=== PATIENT | female | born 1950 | race Caucasian/White ===

== ENCOUNTER 2017-01-03 09:20 | Outpatient (CLI) | payer MEDICARE, OTHER | END 2017-01-03 09:21 | disposition home or self-care (01) | DX: Z12.31 Encounter for screening mammogram for malignant neoplasm of breast (principal); Z80.3 Family history of malignant neoplasm of breast ==

== ENCOUNTER 2018-01-09 10:06 | Outpatient (CLI) | payer MEDICARE, OTHER ==
--- NOTE | 2018-01-10 14:40 | Mammography Report ---
DIGITAL SCREENING MAMMOGRAM: 01/09/2018 CLINICAL INDICATION: A 67-year-old nulliparous patient with family history of breast cancer for screening. COMPARISON: 01/2017, 12/2015, 12/2014, 11/2013, 10/2012, 08/2011, 08/2010. TECHNIQUE: Routine CC and MLO projections were obtained of the breasts. FINDINGS: The breasts again demonstrate scattered fibroglandular densities bilaterally. Coarse and punctate, typically benign calcifications are present. There is a shifting pattern of small circumscribed nodules bilaterally, compatible with waxing and waning cysts. No suspicious masses, clustered microcalcifications, or regions of architectural distortion are identified. IMPRESSION: BENIGN FINDINGS. RECOMMENDATION: Routine annual screening unless otherwise clinically indicated. BIRADS CATEGORY 2 - benign findings. STANDARD QUALIFYING STATEMENTS: 1. This examination was reviewed with the aid of Computer-Aided Detection (CAD). 2. A negative or benign imaging report should not delay biopsy if clinically suspicious findings are present. Consider surgical consultation if warranted. More than 5% of cancers are not identified by imaging. 3. Dense breasts may obscure an underlying neoplasm. TD: 01/10/2018 14:39
== END 2018-01-09 10:07 | disposition home or self-care (01) ==
LOC: DI 10:06
PROVIDERS: ATTEND Internal Medicine
DX: Z12.31 Encounter for screening mammogram for malignant neoplasm of breast (principal); Z80.3 Family history of malignant neoplasm of breast
CPT/HCPCS: 77067

== ENCOUNTER 2019-02-19 10:19 | Outpatient (CLI) | payer MEDICARE, OTHER ==
--- NOTE | 2019-02-19 12:15 | Mammography Report ---
Reason: SCREENING MAMMO Procedure Date: 02/19/2019 Accession Number: [id number] / [id number] Procedure: [facility] - Screening Mammo w/Darwin CPT Code: FULL RESULT: EXAM: Screening Mammo w/Darwin DATE: 02/19/2019 10:49 AM CLINICAL HISTORY: Screening examination. TECHNIQUE: (B) - Bilateral CC and MLO views were obtained. COMPARISON: 01/09/2018, 01/03/2017, 12/27/2015, 12/16/2014 PARENCHYMAL PATTERN: (A) - The breasts demonstrate scattered fibroglandular densities bilaterally. FINDINGS: Stable small well-circumscribed benign breast nodule unchanged dating back to at least 2014. There are no suspicious masses, pleomorphic microcalcifications, or areas of distortion. IMPRESSION: Benign findings. BI-RADS category 2. RECOMMENDATION: (ANNUAL) - Recommend routine annual screening mammography. BI-RADS CATEGORY: (2) - Benign Findings. STANDARD QUALIFYING STATEMENTS: 1. This examination was not reviewed with the aid of Computer-Aided Detection (CAD). 2. A negative or benign imaging report should not preclude biopsy if clinically suspicious findings are present. 3. Dense breasts may obscure an underlying neoplasm. 4. This examination was reviewed without the aid of 3D breast imaging (tomosynthesis).
== END 2019-02-19 10:20 | disposition home or self-care (01) ==
LOC: DI 10:19
PROVIDERS: ATTEND Internal Medicine
DX: Z12.31 Encounter for screening mammogram for malignant neoplasm of breast (principal)
CPT/HCPCS: 77063; 77067

== ENCOUNTER 2020-01-23 08:50 | Outpatient (CLI) | payer MEDICARE, OTHER ==
[2020-01-23 09:12] LABS: BASOPHILS % (AUTO) 0.8 %; EOSINOPHILS # (AUTO) 0.2 10^3/uL (0.0-0.7); EOSINOPHILS % (AUTO) 3.4 %; HGB - HEMOGLOBIN 13.3 g/dL (12.0-16.0); LYMPHOCYTES # (AUTO) 1.4 10^3/uL (1.5-3.5); LYMPHOCYTES % (AUTO) 28.2 %; MEAN CORPUSCULAR HEMOGLOBIN 30.3 pg (27.0-31.0); MEAN CORPUSCULAR HGB CONC 33.8 g/dL (32.0-36.0); MEAN CORPUSCULAR VOLUME 89.5 fL (81.0-99.0); MEAN PLATELET VOLUME 8.4 fL (7.9-10.8); MONOCYTES # (AUTO) 0.5 10^3/uL (0.0-1.0); MONOCYTES % (AUTO) 9.1 %; NEUTROPHILS # (AUTO) 2.9 10^3/uL (1.5-6.6); NEUTROPHILS % (AUTO) 58.3 %; PLT - PLATELET COUNT 319 10^3/uL (130-450); RED BLOOD COUNT 4.39 10^6/uL (4.20-5.40); RED CELL DISTRIBUTION WIDTH 12.1 % (12.0-15.0); WHITE BLOOD COUNT 4.9 x10^3/uL (4.8-10.8)
[2020-01-23 09:26] LABS: ALBUMIN 4.5 g/dL (3.2-5.5); ALBUMIN/GLOBULIN RATIO 1.7 (1.0-2.2); ALKALINE PHOSPHATASE 35 IU/L (42-121); ALT ALANINE AMINOTRANSFERASE 20 IU/L (10-60); AST ASPARTATE AMINOTRANSFERASE 16 IU/L (10-42); BUN - BLOOD UREA NITROGEN 32 mg/dL (6-20); CALCIUM 9.7 mg/dL (8.5-10.3); CARBON DIOXIDE - CO2 26 mmol/L (21-32); CHLORIDE 100 mmol/L (101-111); CHOLESTEROL 191 mg/dL; CK- CREATINE KINASE 46 IU/L (22-269); CREATININE 0.7 mg/dL (0.4-1.0); GFR - MDRD 83 (>89); GLUCOSE 103 mg/dL (70-100); HDL CHOLESTEROL 48 mg/dL; LDL CHOLESTEROL,CALCULATED 118 mg/dL; LDL/HDL RATIO 2.5 (<4.4); SODIUM 134 mmol/L (135-145); TOTAL PROTEIN 7.2 g/dL (6.7-8.2); VLDL CHOLESTEROL 25 mg/dL
[2020-01-23 17:38] LABS: HB2 TOTAL 13.9 g/dL; HEMOGLOBIN A1C 0.51 g/dL; HEMOGLOBIN A1C % 5.5 % (4.6-6.2)
== END 2020-01-23 08:51 | disposition home or self-care (01) ==
LOC: LAB 08:50
PROVIDERS: ATTEND Internal Medicine
DX: I10 Essential (primary) hypertension (principal); R73.9 Hyperglycemia, unspecified; E78.5 Hyperlipidemia, unspecified; D64.9 Anemia, unspecified; Z13.6 Encounter for screening for cardiovascular disorders; Z79.899 Other long term (current) drug therapy
CPT/HCPCS: 36415; 80053; 80061; 82550; 83036; 83721; 84443; 85025

== ENCOUNTER 2020-05-11 10:12 | Outpatient (CLI) | payer MEDICARE, OTHER ==
--- NOTE | 2020-05-12 05:39 | Mammography Report ---
BILATERAL DIGITAL SCREENING MAMMOGRAM 3D/2D: 05/11/2020 Comparison is made to exams dated: 02/19/2019 mammogram, 01/09/2018 mammogram, 01/03/2017 mammogram, 12/27 mammogram, 12/16/2014 mammogram, and 12/04/2013 mammogram - [facility]. There are scattered fibroglandular elements in both breasts. No significant masses, calcifications, or other findings are seen in either breast. There has been no significant interval change. IMPRESSION: NEGATIVE There is no mammographic evidence of malignancy. A 1 year screening mammogram is recommended. This exam was interpreted at Station ID: [id number]. NOTE: For mammograms, a report in lay terms will be sent to the patient. Approximately 15% of breast malignancies will not be visualized mammographically. In the management of a palpable breast mass, a negative mammogram must not discourage biopsy of a clinically suspicious lesion. Electronically Signed By: Staci stone/bernadine:05/11/2020 15:16:23 ACR BI-RADS Category 1: Negative 3341F PARENCHYMAL PATTERN: (A) - The breast(s) demonstrate(s) scattered fibroglandular densities. BI-RADS CATEGORY: (1) - 1 RECOMMENDATION: (ANNUAL) - Recommend routine annual screening mammography. [id number] 1 year screening LATERALITY: (B)
== END 2020-05-11 10:13 | disposition home or self-care (01) ==
LOC: DI 10:12
PROVIDERS: ATTEND Internal Medicine
DX: Z12.31 Encounter for screening mammogram for malignant neoplasm of breast (principal)
CPT/HCPCS: 77063; 77067

== ENCOUNTER 2021-04-13 07:31 | Day surgery (SDC) | payer MEDICARE, OTHER ==
[2021-04-13] MEDS ORDERED: LACTATED RINGERS 1,000 ML IV ONE ×2 (07:43→09:03)
[2021-04-13] MEDS ORDERED: MIDAZOLAM 2 MG/2 ML VIAL ONE ×2 (08:26→08:31)
[2021-04-13] MEDS ORDERED: fentaNYL 250 MCG/5 ML VIAL ONE (08:26)
[2021-04-13 09:27] VITALS: BP 94/55
== END 2021-04-13 07:32 | disposition home or self-care (01) ==
LOC: SDS 07:31
PROVIDERS: ATTEND Surgery
DX: Z12.11 Encounter for screening for malignant neoplasm of colon (principal); K57.30 Diverticulosis of large intestine without perforation or abscess without bleeding; K64.8 Other hemorrhoids; Z86.010 Personal history of colon polyps
CPT/HCPCS: G0105; J3010; J7120

== ENCOUNTER 2021-11-10 08:13 | Outpatient (CLI) | payer MEDICARE, OTHER ==
--- NOTE | 2021-11-11 08:20 | Mammography Report ---
BILATERAL DIGITAL SCREENING MAMMOGRAM 3D/2D: 11/10/2021 CLINICAL: Routine screening. Comparison is made to exams dated: 05/11/2020 mammogram, 02/19/2019 mammogram, 01/09/2018 mammogram, and 01/03/2017 mammogram - [facility]. There are scattered fibroglandular elements in breann th breasts. No significant masses, calcifications, or other findings are seen in either breast. There has been no significant interval change. IMPRESSION: NEGATIVE There is no mammographic evidence of malignancy. A 1 year screening mammogram is recommended. This exam was interpreted at Station ID: [id number]. NOTE: For mammograms, a report in lay terms will be sent to the patient. Approximately 15% of breast malignancies will not be visualized mammographically. In the management of a palpable breast mass, a negative mammogram must not discourage biopsy of a clinically suspicious lesion. Electronically Signed By: George Montoya M.D. ar/penrad:11/10/2021 11:10:33 ACR BI-RADS Category 1: Negative 3341F PARENCHYMAL PATTERN: (A) - The breast(s) demonstrate(s) scattered fibroglandular densities. BI-RADS CATEGORY: (1) - 1 RECOMMENDATION: (ANNUAL) - Recommend routine annual screening mammography. [id number] 1 year screening LATERALITY: (B)
== END 2021-11-10 08:14 | disposition home or self-care (01) ==
LOC: DI 08:13
DX: Z12.31 Encounter for screening mammogram for malignant neoplasm of breast (principal)

== ENCOUNTER 2022-02-23 08:00 | Outpatient (CLI) | payer MEDICARE, OTHER ==
[2022-02-23 16:57] LABS: BASOPHILS % (AUTO) 0.6 %; EOSINOPHILS # (AUTO) 0.1 10^3/uL (0.0-0.7); EOSINOPHILS % (AUTO) 1.8 %; HCT - HEMATOCRIT 39.4 % (37.0-47.0); LYMPHOCYTES # (AUTO) 1.6 10^3/uL (1.5-3.5); LYMPHOCYTES % (AUTO) 29.8 %; MEAN CORPUSCULAR HEMOGLOBIN 29.9 pg (27.0-31.0); MEAN CORPUSCULAR VOLUME 90.6 fL (81.0-99.0); MEAN PLATELET VOLUME 8.6 fL (7.9-10.8); MONOCYTES # (AUTO) 0.4 10^3/uL (0.0-1.0); NEUTROPHILS # (AUTO) 3.3 10^3/uL (1.5-6.6); NEUTROPHILS % (AUTO) 60.6 %; PLT - PLATELET COUNT 362 10^3/uL (130-450); RED BLOOD COUNT 4.35 10^6/uL (4.20-5.40); RED CELL DISTRIBUTION WIDTH 12.7 % (12.0-15.0); WHITE BLOOD COUNT 5.4 x10^3/uL (4.8-10.8)
[2022-02-23 17:03] LABS: ALBUMIN 4.3 g/dL (3.2-5.5); ALBUMIN/GLOBULIN RATIO 1.4 (1.0-2.2); ALKALINE PHOSPHATASE 39 IU/L (42-121); ALT ALANINE AMINOTRANSFERASE 18 IU/L (10-60); AST ASPARTATE AMINOTRANSFERASE 18 IU/L (10-42); BILIRUBIN,TOTAL 0.9 mg/dL (0.2-1.0); BUN - BLOOD UREA NITROGEN 23 mg/dL (6-20); CALCIUM 9.6 mg/dL (8.5-10.3); CARBON DIOXIDE - CO2 27 mmol/L (21-32); CHLORIDE 98 mmol/L (101-111); CHOL/HDL RATIO 3.6 (<4.4); CHOLESTEROL 189 mg/dL; CK- CREATINE KINASE 58 IU/L (22-269); CREATININE 0.7 mg/dL (0.4-1.0); GFR - MDRD 82 (>89); GLUCOSE 85 mg/dL (70-100); HDL CHOLESTEROL 52 mg/dL; LDL CHOLESTEROL,CALCULATED 109 mg/dL; LDL/HDL RATIO 2.1 (<4.4); POTASSIUM 3.9 mmol/L (3.5-5.0); SODIUM 134 mmol/L (135-145); TOTAL PROTEIN 7.3 g/dL (6.7-8.2); TRIGLYCERIDES 140 mg/dL; VLDL CHOLESTEROL 28 mg/dL
[2022-02-23 17:27] LABS: BILIRUBIN,URINE NEGATIVE (NEGATIVE); GLUCOSE, URINE (UA) NEGATIVE (NEGATIVE); KETONES,URINE (UA) NEGATIVE (NEGATIVE); LEUKOCYTE ESTERASE, URINE NEGATIVE (NEGATIVE); NITRITE,URINE NEGATIVE (NEGATIVE); OCCULT BLOOD,URINE NEGATIVE (NEGATIVE); PROTEIN,URINE NEGATIVE (NEGATIVE); UROBILINOGEN,URINE 0.2 (NORMAL) E.U./dL (NORMAL)
[2022-02-23 17:36] LABS: BACTERIA,URINE Many /HPF (None Seen); CLARITY,URINE CLEAR (CLEAR); RBC,URINE None Seen /HPF (0-5); SQUAMOUS EPITHELIAL CELL,UR RARE Squamous (<= Few); WBC,URINE 0-3 /HPF (0-5)
== END 2022-02-23 23:59 | disposition home or self-care (01) ==
LOC: LAB.R 08:00
PROVIDERS: ATTEND Internal Medicine
DX: Z00.00 Encounter for general adult medical examination without abnormal findings (principal); Z79.899 Other long term (current) drug therapy; R39.9 Unspecified symptoms and signs involving the genitourinary system; D64.9 Anemia, unspecified; H91.90 Unspecified hearing loss, unspecified ear; Z86.010 Personal history of colon polyps; E78.5 Hyperlipidemia, unspecified; I10 Essential (primary) hypertension; R73.01 Impaired fasting glucose; M19.90 Unspecified osteoarthritis, unspecified site; J30.2 Other seasonal allergic rhinitis; H65.90 Unspecified nonsuppurative otitis media, unspecified ear
CPT/HCPCS: 80053; 80061; 81001; 82550; 83721; 84443; 85025; 87086; 87181

== ENCOUNTER 2023-03-08 08:50 | Outpatient (CLI) | payer MEDICARE, OTHER ==
--- NOTE | 2023-03-09 11:09 | Mammography Report ---
BILATERAL DIGITAL DIAGNOSTIC MAMMOGRAM 3D/2D: 03/08/2023 CLINICAL: Possible lump in Right breast. Due for bilateral imaging. Comparison is made to exams dated: 11/10/2021 mammogram, 05/11/2020 mammogram, 02/19/2019 mammogram, 2017 mammogram, 01/03/2017 mammogram, and 12/27/2015 mammogram - [facility]. There are scattered areas of fibroglandular density in both breasts (category b / 25%-50% glandular t issue). No significant masses, calcifications, or other findings are seen in either breast. IMPRESSION: INCOMPLETE: NEEDS ADDITIONAL IMAGING EVALUATION There is no abnormality seen in the right breast to correspond with the area of clinical concern in t he upper inner quadrant, however, ultrasound is recommended. Based on the Tyrer Cuzick model (a risk assessment model) the patients lifetime risk is 10.5% and he r 10 year risk is 7.9%. According to the ACR, ACS, and NCCN guidelines, an annual breast MRI exam sly ng with mammogram is recommended if the patients lifetime risk is 20% or greater. This exam was interpreted at Station ID: [id number]. NOTE: For mammograms, a report in lay terms will be sent to the patient. Approximately 15% of breast malignancies will not be visualized mammographically. In the management of a palpable breast mass, a negative mammogram must not discourage biopsy of a clinically suspicious lesion. Electronically Signed By: Giancarlo Mandel M.D. lc/:03/08/2023 10:09:34 ACR BI-RADS Category 0: Incomplete 3340F PARENCHYMAL PATTERN: (A) - The breast(s) demonstrate(s) scattered fibroglandular densities. BI-RADS CATEGORY: (0) - 0 Ultrasound [id number] Immediate follow-up LATERALITY: (B)
--- NOTE | 2023-03-09 11:09 | Ultrasound Report ---
LIMITED ULTRASOUND OF RIGHT BREAST: 03/08/2023 CLINICAL: Palpable right breast lump by patient. No prior exams were available for comparison. Color flow and real-time ultrasound of the right breast 12 o'clock region were performed. Toro scale images of the real-time examination were reviewed. IMPRESSION: NEGATIVE There is no sonographic evidence of malignancy. There is no abnormality seen in the right breast to correspond with the area of clinical concern at 1 2 o'clock, however, clinical correlation and clinical followup are recommended. Return to annual mammogram screening schedule is recommended. This exam was interpreted at Station ID: [id number]. Electronically Signed By: Giancarlo Mandel M.D. lc/:03/08/2023 10:11:10 letter sent: No_Letter Ultrasound BI-RADS: 1 Negative BI-RADS CATEGORY: (1) - 1 Mammogram [id number] return to screening LATERALITY: (B)
== END 2023-03-08 08:51 | disposition home or self-care (01) ==
LOC: DI 08:50
PROVIDERS: ATTEND Internal Medicine
DX: N64.59 Other signs and symptoms in breast (principal)

== ENCOUNTER 2023-12-16 13:12 | Outpatient (CLI) | payer MEDICARE, OTHER ==
--- NOTE | 2023-12-16 20:13 | Ultrasound Report ---
PROCEDURE: Extremity Soft Tissue Limited INDICATIONS: LUMP LOWER LEG TECHNIQUE: Real-time scanning was performed of the right lower extremity, with image documentation. COMPARISON: None. FINDINGS: In the area of right lower extremity palpable abnormality, there is a mixed echogenicity f luid collection/lesion measuring 1 x 0.5 x 0.6 cm. The underlying posterior tibial and peroneal vein are patent. There is no internal vascularity. IMPRESSION: Right lower extremity probable abnormality corresponds to a mixed echogenicity fluid collection/lesio n measuring 1 x 0.5 x 0.6 cm. Findings likely represent a hematoma. Correlate with clinical exam and consider a short interval follow-up to document resolution, at clini syd discretion. Reviewed by: Yi Galdamez MD on 12/16/2023 8:11 PM PST Approved by: Yi Galdamez MD on 12/16/2023 8:11 PM PST Station ID: [id number]
== END 2023-12-16 13:13 | disposition home or self-care (01) ==
LOC: DI 13:12
PROVIDERS: ATTEND Internal Medicine
DX: R22.41 Localized swelling, mass and lump, right lower limb (principal)

== ENCOUNTER 2023-12-16 13:13 | Outpatient (CLI) | payer MEDICARE, OTHER ==
--- NOTE | 2023-12-16 20:29 | XRAY Report ---
PROCEDURE: Hip w/Pelvis 2-3V RT INDICATIONS: RIGHT HIP PAIN TECHNIQUE: 2 views of the hip were acquired. COMPARISON: None. FINDINGS: Bones: No fractures or dislocations. An apparent lucency in the femoral neck is favored to represent overlying skin folds. Severe right hip joint space narrowing, subcortical sclerosis and juxta-articu lar osteophytosis. No suspicious bony lesions. Degenerative changes of the lower lumbar spine with levoconvex curvature. Minimal left hip joint space narrowing. Soft tissues: No suspicious soft tissue calcifications or masses. IMPRESSION: 1.No definite acute bony abnormality. If there is high clinical suspicion for a radiographically occu lt fracture, consider cross-sectional imaging for further evaluation. 2.Severe right hip osteoarthritis. Inflammatory arthritis is not excluded. Reviewed by: Yi Galdamez MD on 12/16/2023 8:28 PM PST Approved by: Yi Galdamez MD on 12/16/2023 8:28 PM PST Station ID: [id number]
== END 2023-12-16 13:14 | disposition home or self-care (01) ==
LOC: DI 13:13
PROVIDERS: ATTEND Internal Medicine
DX: M16.11 Unilateral primary osteoarthritis, right hip (principal); R22.41 Localized swelling, mass and lump, right lower limb

== ENCOUNTER 2024-03-12 08:56 | Outpatient (CLI) | payer MEDICARE, OTHER ==
[2024-03-12 09:08] LABS: BASOPHILS % (AUTO) 0.5 %; EOSINOPHILS # (AUTO) 0.2 10^3/uL (0.0-0.7); EOSINOPHILS % (AUTO) 2.6 %; HCT - HEMATOCRIT 42.2 % (37.0-47.0); HGB - HEMOGLOBIN 13.9 g/dL (12.0-16.0); LYMPHOCYTES # (AUTO) 1.5 10^3/uL (1.5-3.5); LYMPHOCYTES % (AUTO) 25.4 %; MEAN CORPUSCULAR HEMOGLOBIN 29.8 pg (27.0-31.0); MEAN CORPUSCULAR HGB CONC 32.9 g/dL (32.0-36.0); MEAN CORPUSCULAR VOLUME 90.6 fL (81.0-99.0); MEAN PLATELET VOLUME 8.3 fL (7.9-10.8); MONOCYTES # (AUTO) 0.5 10^3/uL (0.0-1.0); MONOCYTES % (AUTO) 8.2 %; NEUTROPHILS # (AUTO) 3.6 10^3/uL (1.5-6.6); NEUTROPHILS % (AUTO) 63.1 %; PLT - PLATELET COUNT 316 10^3/uL (130-450); RED BLOOD COUNT 4.66 10^6/uL (4.20-5.40); RED CELL DISTRIBUTION WIDTH 12.3 % (12.0-15.0); WHITE BLOOD COUNT 5.7 x10^3/uL (4.8-10.8)
[2024-03-12 09:32] LABS: ALBUMIN 4.6 g/dL (3.2-5.5); ALBUMIN/GLOBULIN RATIO 1.7 (1.0-2.2); ALKALINE PHOSPHATASE 45 IU/L (42-121); ALT ALANINE AMINOTRANSFERASE 12 IU/L (10-60); AST ASPARTATE AMINOTRANSFERASE 13 IU/L (10-42); BILIRUBIN,TOTAL 0.8 mg/dL (0.2-1.0); BUN - BLOOD UREA NITROGEN 25 mg/dL (6-20); CALCIUM 10.5 mg/dL (8.5-10.3); CARBON DIOXIDE - CO2 30 mmol/L (21-32); CHLORIDE 103 mmol/L (101-111); CHOL/HDL RATIO 3.3 (<4.4); CHOLESTEROL 207 mg/dL; CREATININE 0.8 mg/dL (0.6-1.3); GFR - MDRD 70 (>89); GLUCOSE 91 mg/dL (74-104); HDL CHOLESTEROL 62 mg/dL; LDL CHOLESTEROL,CALCULATED 115 mg/dL; LDL/HDL RATIO 1.9 (<4.4); POTASSIUM 4.2 mmol/L (3.5-4.5); SODIUM 138 mmol/L (135-145); TOTAL PROTEIN 7.3 g/dL (6.4-8.9); TRIGLYCERIDES 150 mg/dL (48-352); VLDL CHOLESTEROL 30 mg/dL
[2024-03-12 09:39] LABS: THYROID STIMULATING HORMONE 2.22 uIU/mL (0.34-5.60)
[2024-03-12 11:43] LABS: ESTIMATED AVERAGE GLUCOSE 120 mg/dL (70-100); HEMOGLOBIN A1c% 5.8 % (4.27-6.07)
== END 2024-03-12 08:57 | disposition home or self-care (01) ==
LOC: LAB 08:56
PROVIDERS: ATTEND Internal Medicine
DX: Z00.00 Encounter for general adult medical examination without abnormal findings (principal); D64.9 Anemia, unspecified; E78.5 Hyperlipidemia, unspecified; R73.01 Impaired fasting glucose; H91.90 Unspecified hearing loss, unspecified ear; Z86.010 Personal history of colon polyps; I10 Essential (primary) hypertension; B35.1 Tinea unguium; M19.90 Unspecified osteoarthritis, unspecified site; L71.9 Rosacea, unspecified; J30.2 Other seasonal allergic rhinitis; Z79.899 Other long term (current) drug therapy
CPT/HCPCS: 36415; 80053; 80061; 83036; 83721; 84443; 85025